=== PATIENT | female | born 1985 ===

== ENCOUNTER 2025-08-02 15:22 | Emergency (ER) | payer BC, SELFPAY ==
[2025-08-02 15:24] VITALS: BP 177/98
[2025-08-02 16:36] VITALS: BMI 32.1
[2025-08-02 16:40] VITALS: BP 147/102
--- NOTE | 2025-08-02 16:40 | ED.GENMED ---
History of Present Illness
General
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
Source: patient
Exam Limitations: none
Time Seen by Provider: 08/02/25 16:22
History of Present Illness
History of Present Illness:
39yoF with a history of hypertension presenting for evaluation of pelvic pain. She reports pain in her left pelvic region that has been ongoing for about a month. The pain is described as burning and a 'firework' sensation. Pain radiates to the
lower back. Pain is intermittent and she was having difficulty sleeping last night due to the pain. She also reports the frequent urge to urinate which is unusual. She has been taking ibuprofen with mild improvement. She tried to make an
appointment with her joy operator but is unable to get in until October. Her friend is a nurse practitioner who examined her today and told her to go to the ED for evaluation. Last menstrual period finished about a week ago. She denies any
abnormal bleeding or vaginal discharge. No fevers, vomiting, or diarrhea. She reports constipation but this is typical for her. Prior abdominal surgeries include a cholecystectomy and a section.
Past History
Past History
ED Past Medical History: HTN
ED Past Surgical History: Cholecystectomy, , Orthopedic (Knee surgery) and Tonsilectomy
Social History
Tobacco: Non-smoker
Alcohol: Occasional
Personal:
Living: with family
Phy Exam
General Physical Exam
General Presentation: well appearing and no apparent distress
General Skin: warm and dry
General Habitus: normal
General Mental: alert
ENT Exam
ENT Exam: normocephalic
Pulmonary Exam
Pulmonary Exam: no respiratory distress
Gastrointestinal Exam
Gastrointestinal Exam: soft, non distended and other (+Tenderness in LLQ. Abdomen soft, non-distended. No palpable mass. No rebound or guarding. )
Neurological Exam
Neurological Exam: alert
Amber Coma Scale
Eye Opening: Spontaneous
Verbal Response: Oriented
Motor Response: Obeys Commands
GCS Total Score: 15
Skin Exam
Skin Exam: normal color and warm/dry
Psychiatric Exam
Psychiatric Exam: normal mood/affect
Course
Orders/Labs/Results
Orders:
Orders
08/02/25 16:38
Urinalysis Reflex To Culture Urgent
Date Specimen was Collected: 08/02/25
Time Specimen was Collected: 16:35
Urine Microscopic Reflex Cult Urgent
08/02/25 16:40
Test Result ONCE
Pelvis & Transvaginal US [US Pelvis W Transvag Combined] Urgent
Comment:
Reason For Exam: L pelvic pain
08/02/25 16:53
Complete Blood Count/With Diff Urgent
Comprehensive Metabolic Panel Urgent
HCG, Serum Qualitative Screen Urgent
08/02/25 16:57
Ketorolac [Toradol] 15 mg IV NOW STA
08/02/25 19:05
CT Abd/pelvis W Iv Cont Urgent
Comment:
Reason For Exam: LLQ pain
Abnormal Lab Results
08/02/25 08/02/25
16:38 16:53
Sodium 133 L mmol/L
(135-145)
Glucose 103 H mg/dl
(70-99)
Ur Occult Blood Reflex 1+ A
(Negative)
Urine RBC 3-6 A /HPF
(0-2)
Urine Bacteria (Reflex) Few A
(Negative)
08/02/25 16:53
08/02/25 16:53
Vital Signs
Initial and Last Documented VS:
Initial Vital Signs
Temp Pulse Resp BP Pulse Ox
97.9 F 88 18 177/98 98
08/02/25 15:24 08/02/25 15:24 08/02/25 15:24 08/02/25 15:24 08/02/25 15:24
Last Documented Vital Signs
Temp Pulse Resp BP Pulse Ox
97.9 F 84 19 137/80 98
08/02/25 15:24 08/02/25 20:30 08/02/25 20:30 08/02/25 20:13 08/02/25 16:44
MDM/Problems Addressed
Differential Diagnosis Includes:
39yoF here with LLQ/L pelvic pain x 1 month. Described as burning. She is hypertensive in triage with otherwise normal vital signs. She is well-appearing in no distress. No signs of peritonitis on abdominal exam. Differential diagnosis includes
but is not limited to: Ovarian cyst, diverticulitis, UTI, kidney stone, constipation, nonspecific abdominal pain
Initial ED plan: Check abdominal labs, UA, hCG, and pelvic ultrasound. IV Toradol for pain.
*Pulse Oximetry
SaO2: 98
Oxygen Mode of Delivery: Room air
Patient hypoxic: no
*Critical Care Note
Total Time (30-74mins, 75-104mins- exclusive of procedures): Not Applicable
Update Note
Update Note:
Labs unremarkable including normal white count, renal function, and LFTs. hCG negative. No overt signs of infection on urinalysis. Ultrasound does not show any abnormalities of the left ovary. CT scan added which shows mild colitis hepatic
flexure although this does not correlate with her current symptoms. Unclear etiology of pain. Patient stable for discharge with outpatient follow-up with PCP. ED return precautions reviewed and she was discharged in stable condition.
ED Attending Note
-
Portions of this chart may have been created with voice recognition software.� Occasional wrong word or��sound alike� substitutions may have occurred due to the inherent limitations of voice recognition software.
Discharge Plan
Departure
Patient Disposition: Home (Routine Discharge)
Date of Disposition: 08/02/25
Time of Disposition: 20:42
Patient with high blood pressure during this ER visit?: No
Discharge Problem:
Left lower quadrant abdominal pain
Instructions: Abdominal Pain
Referrals:
Felicia Mendez DO [Family Provider, Family Practice]
Activity Restrictions/Additional Instructions:
Please call tomorrow to schedule a follow-up appointment with your family doctor. Return to the ER with any new or worsening symptoms.
Interventions
Interventions:
*Risk Screen - Suicide Last Done: 08/02/25 15:24
*General Assessment Last Done: 08/02/25 15:24
*Neglect/Abuse Screening Last Done: 08/02/25 15:24
*ED- Fall Risk Assessment Last Done: 08/02/25 16:54
*ED COVID-19 Vaccine History Last Done: 08/02/25 16:54
*ED Influenza Vaccine History Last Done: 08/02/25 16:54
ED-Female Genitourinary Assessment Last Done: 08/02/25 17:05
Discharge Date and Time
Print Language: [id number]
[2025-08-02 16:45] LABS: Urine Character Clear (Clear)
[2025-08-02 17:00] LABS: Urine White Cell 0-2 /HPF (0-5)
[2025-08-02 17:06] LABS: Hematocrit 42.3 % (37.0-47.0); Hemoglobin 14.8 g/dL (12.0-16.0); Mean Corp Hgb Conc. 35.0 g/dL (33.0-37.0); Mean Corpuscular Volume 84.1 fL (81.0-99.0); Nucleated Red Blood Cells % 0 %; Platelet Count 367 10^3/uL (130-400); Red Cell Dist. Width 12.3 % (11.5-14.5)
[2025-08-02] MEDS: TORADOL 15 MG IV (17:19)
[2025-08-02 17:26] LABS: HCG, Serum Qualitative Screen Negative
[2025-08-02 17:35] LABS: ALT (SGPT) 28 U/L (0-35); AST (SGOT) 23 U/L (14-36); Albumin 4.4 g/dl (3.5-5.0); Alkaline Phosphatase 57 U/L (38-126); Blood Urea Nitrogen 13 mg/dl (7-17); Calcium 9.5 mg/dl (8.4-10.2); Carbon Dioxide 26 mmol/L (22-30); Chloride 102 mmol/L (98-107); Estimated Creatinine Clearance > 125 ml/min; Glucose 103 mg/dl (70-99); Potassium 4.0 mmol/L (3.5-5.1); Sodium 133 mmol/L (135-145); Total Protein 7.5 g/dl (6.3-8.2); eGFR > 60.00
[2025-08-02 18:45] VITALS: BP 146/92
[2025-08-02 20:13] VITALS: BP 137/80
[2025-08-02 21:10] VITALS: BP 138/82
== END 2025-08-02 21:10 | disposition home or self-care (01) ==
LOC: EMR 15:22
PROVIDERS: Physician Assistant; EMERGENCY PHYSICIAN Emergency Medicine; FAMILY PHYSICIAN Family Medicine
DX: R10.32 Left lower quadrant pain (principal); I10 Essential (primary) hypertension
CPT/HCPCS: 99284; 96374; 74177; 76830; 76856; 80053; 81003; 81015; 84703; 85025; Q9967